=== PATIENT | female | born 1955 | race Caucasian/White ===

== ENCOUNTER 2016-11-18 06:08 | Day surgery (SDC) | payer OTHER ==
[2016-11-17 17:24] VITALS: BMI 28.4
[2016-11-18] VITALS (7 sets, daily range): BP systolic 101–136; BP diastolic 54–75; PULSE 59–72; RESP 15–26; Ht 162.6 cm; Wt 76.0 kg
[~2016-11-18] VITALS: Ht 162.6 cm; Wt 76.0 kg
[~2016-11-18 06:08] MED LIST: CEFAZOLIN 2 GM/50 ML (PMX) 50 ML IVPB SCH; GLIM4TAB PO; LACTATED RINGER'S 1,000 ML IV* SCH; MONT10TA24 PO; MTF1000T PO; OMEP40CA6 PO
--- NOTE | 2016-11-18 07:10 | HPN ---
Date/Time of Note Date/Time of Note DATE: 11/18/16 TIME: 07:10 Interval H&P Admission Note Pt. seen H&P reviewed: No system changes FLORY JONES MD Nov 18, 2016 07:10
[2016-11-18] MEDS ORDERED: MIDAZOLAM 1 MG/ML 2 ML INJ IV PRN (09:30)
[2016-11-18] MEDS ORDERED: MEPERIDINE 25 MG INJ IV PRN (09:30)
[2016-11-18] MEDS ORDERED: FENTAnyl 50 MCG/ML VIAL IV PRN ×3 (09:30)
[2016-11-18] MEDS ORDERED: METOCLOPRAMIDE 10 MG INJ IV PRN (09:30)
[2016-11-18] MEDS ORDERED: LABETALOL HCL 20MG INJ IV PRN (09:30)
[2016-11-18] MEDS ORDERED: ONDANSETRON 4 MG INJ IV PRN (09:30)
[2016-11-18] MEDS ORDERED: OXYCODONE/ACETAMINOPHEN (5/325) TAB PO PRN ×2 (09:30)
[2016-11-18] MEDS ORDERED: EPHEDrine SULFATE 50 MG/5 ML SYG IV PRN (09:30)
[2016-11-18] MEDS ORDERED: DIPHENHYDRAMINE 50 MG INJ IV PRN (09:30)
[2016-11-18] MEDS ORDERED: HYDROmorphONE (0.2 MG/ML) 10ML SYG IV PRN ×3 (09:30)
[2016-11-18] MEDS ORDERED: POLYMYXIN/BACITRACIN 1L IRRIG IRR ONE (10:04)
[2016-11-18] MEDS ORDERED: BUPIVACAINE 0.25% (MPF) 30 ML INJ INJ ONE (10:04)
[2016-11-18] MEDS ORDERED: LIDOCAINE 1% (MPF) 30 ML INJ INJ ONE (10:04)
[2016-11-18] MEDS ORDERED: LIDOCAINE 2%/EPI MPF (SDV) 20 ML VIAL INJ ONE (10:04)
[2016-11-18] MEDS ORDERED: BUPIVACAINE 0.25%/EPI (SDV) 30 ML INJ INJ ONE (11:27)
[2016-11-18] MEDS ORDERED: MUPIROCIN 2% 15 GM CR TOP ONE (11:37)
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
[2016-11-18] MEDS ORDERED: CEFAZOLIN 1 GM INJ ONE (18:03)
[2016-11-18] MEDS ORDERED: BUPIVACAINE 0.25% (MPF) 30 ML INJ ONE (18:03)
[2016-11-18] MEDS ORDERED: METOCLOPRAMIDE 10 MG INJ ONE (18:03)
[2016-11-18] MEDS ORDERED: MUPIROCIN 2% 15 GM CR ONE (18:03)
[2016-11-18] MEDS ORDERED: GENTAMICIN 80 MG INJ ONE (18:03)
[2016-11-18] MEDS ORDERED: MEPERIDINE 100 MG INJ ONE (18:03)
[2016-11-18] MEDS ORDERED: POLYMYXIN/BACITRACIN 1L IRRIG ONE (18:03)
[2016-11-18] MEDS ORDERED: KETOROLAC 30 MG INJ ONE (18:03)
[2016-11-18] MEDS ORDERED: ROCURONIUM 50 MG INJ ONE (18:03)
[2016-11-18] MEDS ORDERED: ONDANSETRON 4 MG INJ ONE (18:03)
[2016-11-18] MEDS ORDERED: GLYCOPYRROLATE 0.4 MG INJ ONE ×2 (18:03)
[2016-11-18] MEDS ORDERED: LIDOCAINE 2%/EPI 30 ML INJ ONE (18:03)
[2016-11-18] MEDS ORDERED: LIDOCAINE 1% (MPF) 30 ML INJ ONE (18:03)
[2016-11-18] MEDS ORDERED: LIDOCAINE 2% (SDV) 5 ML INJ ONE (18:03)
[2016-11-18] MEDS ORDERED: NEOSTIGMINE 3 MG/3 ML SYRINGE ONE (18:03)
[2016-11-18] MEDS ORDERED: PROPOFOL 20 ML ONE (18:03)
[2016-11-18] MEDS ORDERED: SUCCINYLCHOLINE CHLORIDE 100 MG/5 ML SYG IV ONE (18:03)
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
== END 2016-11-18 15:17 | disposition home or self-care (01) ==
LOC: SDS 06:08
PROVIDERS: ATTEND Plastic Surgery
DX: L90.5 Scar conditions and fibrosis of skin (principal); L91.0 Hypertrophic scar; E11.9 Type 2 diabetes mellitus without complications; E66.9 Obesity, unspecified; Z68.28 Body mass index [BMI] 28.0-28.9, adult
CPT/HCPCS: 11406; 15734; 82962; 88305; J0690; J1580; J1885; J2175; J2405; J2710; J2765; J7999; Z7512; Z7610